=== PATIENT | female | born 1950 | race African-American/Black ===

== ENCOUNTER → 2018-11-19 | Outpatient (CLI) | payer OTHER | END | disposition home or self-care (01) | LOC: PCVCCLINIC 11:55 | PROVIDERS: ATTEND Internal Medicine Cardiovascular Disease | DX: I25.10 Atherosclerotic heart disease of native coronary artery without angina pectoris (principal); I10 Essential (primary) hypertension; E78.5 Hyperlipidemia, unspecified; E11.9 Type 2 diabetes mellitus without complications; M25.559 Pain in unspecified hip; R09.89 Other specified symptoms and signs involving the circulatory and respiratory systems; Z86.73 Personal history of transient ischemic attack (TIA), and cerebral infarction without residual deficits; Z87.891 Personal history of nicotine dependence; Z79.82 Long term (current) use of aspirin; Z72.89 Other problems related to lifestyle | CPT/HCPCS: 36415; 80061; 93005; G0463 ==

== ENCOUNTER → 2018-11-26 | Outpatient (CLI) | payer MEDICARE, OTHER ==
[~2018-11-26] MED LIST: REGADENOSON 0.4 MG/5 ML DISP.SYRIN. IV ONE
--- NOTE | 2018-11-26 09:55 | PCVCIMAG ---
APPROVED REPORT Laterality: Bilateral Doppler Spectral Velocity Analysis PSV / EDVPSV / EDV ECA (R) 66 / 9 cm/sECA (L) 80 / 7 cm/s dICA (R) 90 / 36 cm/sdICA (L) 81 / 26 cm/s Christopher (R) 102 / 36 cm/smICA (L) 96 / 25 cm/s pICA (R) 85 / 31 cm/spICA (L) 70 / 25 cm/s Bulb (R) 49 / 14 cm/sBulb (L) 63 / 14 cm/s dCCA (R) 74 / 24 cm/sdCCA (L) 80 / 22 cm/s mCCA (R) 69 / 19 cm/smCCA (L) 96 / 23 cm/s Vert (R) 65 / 21 cm/sVert (L) 93 / 28 cm/s ICA/CCA 1.38ICA/CCA 1.20 Findings The right carotid bulb has mild plaque. The right proximal internal carotid artery shows no significant stenosis. The right common carotid artery shows no significant stenosis. The right external carotid artery shows no significant stenosis. The left carotid bulb has moderate calcified plaque. The left proximal internal carotid artery shows <40% stenosis. The left common carotid artery shows no significant stenosis. The left external carotid artery shows no significant stenosis. Conclusion 1. Right internal carotid artery plaquing without significant stenosis 2. Left internal carotid artery stenosis (<40%) 3. Antegrade vertebral flow
--- NOTE | 2018-11-30 15:02 | PCVCIMAG ---
APPROVED REPORT Study performed: 11/26/2018 07:57:32 EXAM: Comprehensive 2D, Doppler, and color-flow Echocardiogram Patient Location: Echo lab Status: routine BSA: 1.88 HR: 80 bpmBP: 144/90 mmHg Rhythm: NSR Other Information Study Quality: Adequate Indications CAD Chest Pain 2D Dimensions IVSd: 13.76 (7-11mm) LVDd: 47.33 mm PWd: 13.07 (7-11mm) LVDs: 35.28 (25-40mm) Left Atrium: 36.33 (27-40mm) Aortic Root: 25.18 mm LV Single Plane 4CH: 41.31 % LV Single Plane 2CH: 44.87 % Biplane EF: 42.4 % Volumes Left Atrial Volume (Systole) Single Plane 4CH: 28.78 mLSingle Plane 2CH: 33.80 mL LA ESV Index: 18.00 mL/m2 Aortic Valve AoV Peak Leonard.: 1.04 m/s AO Peak Gr.: 4.36 mmHgLVOT Max P.39 mmHg LVOT Max V: 0.77 m/s Mitral Valve E/A Ratio: 0.6 MV Decel. Time: 120.42 ms MV E Max Leonard.: 0.40 m/s MV A Leonard.: 0.69 m/s IVRT: 103.81 ms Pulmonary Valve PV Peak Leonard.: 0.83 m/sPV Peak Gr.: 2.77 mmHg Pulmonary Vein P Vein S: 0.25 m/sP Vein A: 0.37 m/s P Vein D: 0.33 m/sP Vein A Dur.: 114.2 msec P Vein S/D Ratio: 0.76 Tricuspid Valve TR Peak Leonard.: 2.32 m/s TR Peak Gr.: 21.47 mmHg TV Vmax: 0.45 m/s Left Ventricle The left ventricle is normal size. There is normal LV segmental wall motion. Mild concentric left ventricular hypertrophy. Left ventricular systolic function is mild to moderately decreased. LVEF is 40-45%. Grade I - abnormal relaxation pattern. Right Ventricle The right ventricle is normal size. The right ventricular systolic function is normal. Atria The left atrium size is normal. The right atrium size is normal. Aortic Valve The aortic valve is normal in structure. No aortic regurgitation is present. There is no aortic valvular stenosis. Mitral Valve The mitral valve is normal in structure. Mild to moderate mitral regurgitation. No evidence of mitral valve stenosis. Tricuspid Valve The tricuspid valve is normal in structure. Mild tricuspid regurgitation with PAP of 28 mmHg. Pulmonic Valve The pulmonary valve is normal in structure. There is mild pulmonic valvular regurgitation. Great Vessels The aortic root is normal in size. IVC is normal in size and collapses >50% with inspiration. Pericardium There is no pericardial effusion. There is no pleural effusion. <Conclusion> The left ventricle is normal size. Mild concentric left ventricular hypertrophy. Left ventricular systolic function is mild to moderately decreased. LVEF is 40-45%. Grade I - abnormal relaxation pattern. The left atrium size is normal. The aortic valve is normal in structure. There is no aortic valvular stenosis. Mild to moderate mitral regurgitation. Mild tricuspid regurgitation with PAP of 28 mmHg. The aortic root is normal in size. There is no pericardial effusion.
--- NOTE | 2018-11-30 16:07 | PCVCIMAG ---
APPROVED REPORT Imaging Protocol: Rest Tc-99m/Stress Tc-99m 1 day Study performed: 11/26/2018 10:00:39 Indication: Abnormal EKG, Chest pain, Pre-Operative CV evaluation Patient Location: Out-Patient Stress Nurse: Judie Clements RN, Jaylyn George RN VT Tech:LAITH Bains Ht: 5 ft 5 in Wt: 181 lbs BSA: 1.90 m2 HR: 71 bpm BP: 196/89 mmHg BMI: 30.1 Medical History Medical History: HTN, Hyperlipidemia, CVD, CAD, Former Smoker, Diabetes Medications: Aspirin, Atorvastatin, Amaryl, Losartan, Metformin, Omeprazole Allergies: Vicodan Cardiac Risk Factors: Age Pretest Chest Pain Characteristics: No chest pain Exercise History: Sedentary Resting Data Rest SPECT myocardial perfusion imaging was performed in supine position 45 minutes following the intravenous injection of 11.1 mCi of Tc-99m Sestamibi. Time of rest injection: 1000 Date: 11/26/2018 Administration Route: IV Administration Site: Left Hand Pharmacologic Stress Pharmacologic stress test was performed by injecting Regadenoson 0.4 mg IV push over 10-15 seconds immediately followed by the intravenous injection of 33.3 mCi of Tc-99m Sestamibi. Time of stress injection: 1100 Date: 11/26/2018 Administration Route: IV Administration Site: Left Hand Gated Stress SPECT was performed 45 minutes after stress injection. The images were gated to evaluate regional wall motion and calculate left ventricular ejection fraction. Stress Test Details Stress Test: Pharmacologic stress testing performed using 0.4 mg of regadenoson per 5 mL given IV over 10 seconds. Reason for pharmacologic stress test: pre-hip replacement surgery. HRMax Heart Rate (APMHR): 154 bpm Resting HR: 71 bpmTarget HR (85% APMHR): 130 bpm Max HR Achieved: 126 bpm % of APMHR: 81 Recovery HR: 98 bpm BP Resting BP: 196/89 mmHg Max BP: 196/85 mmHg Recovery BP: 180/83 mmHg ECG Resting ECG: Normal Sinus Rhythm Stress ECG: Sinus Tachycardia Recovery ECG: Normal Sinus Rhythm Clinical Reason for Termination: Completed protocol Stress Symptoms: Dyspnea, Lightheaded Exercise duration: 0 min 55 sec Symptoms resolved with caffeine. Stress ECG Conclusion ECG: Non-ischemic Study Quality Study: Good Study Data Post stress, the left ventricular ejection was 63%.. SSS: 2 SRS: 1 SDS: 1 TID = 1.12. Perfusion No evidence of stress induced ischemia or prior myocardial infarction. Wall Motion Normal left ventricular size and function with no regional wall motion abnormalities. Nuclear Conclusion No evidence of stress induced ischemia or prior myocardial infarction. Normal left ventricular size and function with no regional wall motion abnormalities. Post stress, the left ventricular ejection was 63%. Since September 2016 the apical anterior reversible defect has resolved. Interpreted by: Jeremy Nolen MD Electronically Approved: 11/26/2018 13:21:53 <Conclusion> ECG: Non-ischemic
== END | disposition home or self-care (01) ==
LOC: PCVCIMAG 08:21
PROVIDERS: ATTEND Internal Medicine Cardiovascular Disease
DX: I65.23 Occlusion and stenosis of bilateral carotid arteries (principal); R09.89 Other specified symptoms and signs involving the circulatory and respiratory systems; E78.5 Hyperlipidemia, unspecified
CPT/HCPCS: 78452; 93017; 93306; 93880; A9500; J2785